=== PATIENT | male | born 1955 | race American Indian/Alaskan Native ===

== ENCOUNTER 2016-09-24 13:29 | Inpatient (IN) | payer OTHER ==
[~2016-09-24] VITALS: Ht 175.3 cm; Wt 91.2 kg
[~2016-09-24 13:29] MED LIST: ASPI-621 PO; ATEN50TA41 PO; BENA1TAB10 PO; DOCU250C2 PO; FAMO-79 PO; HYDR-3240 PO; LEVE500T53 PO; LEVE750T37 PO; LIDO700A5 EXT; MULT-82 PO
[2016-09-24] MEDS ORDERED: ONDANSETRON 2MG/ML, 2ML ONE (14:17)
[2016-09-24] MEDS ORDERED: MORPHINE SULFATE 4 MG/ML, 1ML ONE ×2 (14:17→15:19)
[2016-09-24] MEDS ORDERED: SODIUM CHLORIDE FLUSH 10ML SYR IVF ONE (14:30)
[2016-09-24] MEDS ORDERED: ONDANSETRON 2MG/ML, 2ML IVPush ONE (14:30)
[2016-09-24] MEDS: MORPHINE SULFATE 4 MG/ML, 1ML IVPush PRN ×2 (14:34→15:21)
[2016-09-24 14:41] LABS: HEMOGLOBIN 16.3 g/dL (13.7-18.0)
[2016-09-24 14:49] LABS: ASPARTATE AMINO TRANSFERASE 16 U/L (15-37); BLOOD UREA NITROGEN 12 mg/dL (7-18)
[2016-09-24 14:54] LABS: IS PT STATUS REG ER OR PRE ER? YES
[2016-09-24] MEDS ORDERED: KETOROLAC 30 MG/1 ML IVPush PRN (17:00)
[2016-09-24] MEDS ORDERED: SODIUM CHLORIDE 0.9% 1,000 ML IV SCH (17:02)
[2016-09-24] MEDS ORDERED: ONDANSETRON 2MG/ML, 2ML IVP PRN (17:30)
[2016-09-24] MEDS ORDERED: ACETAMINOPHEN 325 MG TABLET PO PRN (17:30)
[2016-09-24] MEDS ORDERED: MORPHINE SULFATE 4 MG/ML, 1ML IVPush PRN (17:30)
[2016-09-24] MEDS ORDERED: LORazepam 2 MG/ML, 1ML IVPush PRN (17:30)
[2016-09-24] MEDS ORDERED: ENALAPRILAT 1.25 MG/ML, 2ML IVPush PRN (17:30)
[2016-09-24] MEDS ORDERED: HYDROcodone/APAP 5/325 TABLET PO PRN (17:30)
[2016-09-24] MEDS ORDERED: POTASSIUM CHLORIDE 20 MEQ TAB.ER.PRT PO ONE (17:30)
[2016-09-24] MEDS ORDERED: TEMAZEPAM 15 MG CAPSULE PO PRN (17:30)
[2016-09-24] MEDS ORDERED: ENOXAPARIN 40 MG/0.4 ML SQ SCH (17:30)
[2016-09-24 17:51] VITALS: BP 195/107
[2016-09-24 18:23] VITALS: BP 159/103
[2016-09-24 18:34] VITALS: BP 151/96
[2016-09-24] MEDS ORDERED: ATENOLOL 50 MG TABLET PO ONE (19:00)
[2016-09-24] MEDS ORDERED: LEVETIRACETAM 500 MG TABLET PO SCH (21:00)
[2016-09-24] MEDS ORDERED: METHOCARBAMOL 1,000 MG in DEXTROSE 5% 100 ML IV SCH (21:00)
[2016-09-24] MEDS ORDERED: SIMVASTATIN 20 MG TABLET PO SCH (21:00)
[2016-09-24 21:36] VITALS: BP_SYST 146; BP_SYST 149; BP_SYST 151; BP_DIAS 88; BP_DIAS 91; BP_DIAS 95
[2016-09-25] MEDS ORDERED: PANTOPROZOLE 40MG TABLET PO SCH (07:30)
[2016-09-25] MEDS ORDERED: HYDROCHLOROTHIAZIDE PO SCH (09:00)
[2016-09-25] MEDS ORDERED: ATENOLOL 50 MG TABLET PO SCH (09:00)
[2016-09-25] MEDS ORDERED: ASPIRIN 81 MG TABLET EC PO SCH (09:00)
[2016-09-25] MEDS ORDERED: MULTIVITAMIN 1 TABLET PO SCH (09:00)
[2016-09-25] MEDS ORDERED: BENAZEPRIL PO SCH (09:00)
[2016-09-25] MEDS ORDERED: [UNRECOGNIZED DRUG - OTHER] PO SCH (09:00)
== END 2016-09-24 21:57 | disposition left against medical advice (07) | DRG 74 ==
LOC: ED 15:49 → EDIP 15:50 → ED 15:56 → SUATTDRO 16:21 → 5SO 17:14
PROVIDERS: ADMIT Internal Medicine; ATTEND Internal Medicine
DX: G90.8 Other disorders of autonomic nervous system (principal); I10 Essential (primary) hypertension; E87.6 Hypokalemia; G40.909 Epilepsy, unspecified, not intractable, without status epilepticus; E78.5 Hyperlipidemia, unspecified; I25.10 Atherosclerotic heart disease of native coronary artery without angina pectoris; S20.219A Contusion of unspecified front wall of thorax, initial encounter; K21.9 Gastro-esophageal reflux disease without esophagitis; Z96.641 Presence of right artificial hip joint; Z95.1 Presence of aortocoronary bypass graft; Z86.73 Personal history of transient ischemic attack (TIA), and cerebral infarction without residual deficits; Z87.891 Personal history of nicotine dependence; Z91.14 Patient's other noncompliance with medication regimen
CPT/HCPCS: 36415; 36556; 71010; 71120; 80053; 81003; 83880; 84484; 85025; 85610; 85730; 93005; 96374; 96375; 96376; J1650; J2405; J7030

== ENCOUNTER 2016-10-09 15:27 | Emergency (ER) | payer OTHER ==
[~2016-10-09] VITALS: Ht 175.3 cm; Wt 89.4 kg
[2016-10-09 15:31] VITALS: BP 172/103
[2016-10-09 16:27] LABS: BLOOD UREA NITROGEN 11 mg/dL (7-18)
== END 2016-10-09 16:28 | disposition left against medical advice (07) ==
LOC: ED 16:19
DX: R10.9 Unspecified abdominal pain (principal)
CPT/HCPCS: 36415; 80048; 82040; 85025; 99281

== ENCOUNTER 2016-10-30 07:45 | Emergency (ER) | payer OTHER ==
[~2016-10-30] VITALS: Ht 175.3 cm; Wt 90.4 kg
[2016-10-30] MEDS ORDERED: ONDANSETRON 2MG/ML, 2ML IVPush ONE (08:30)
[2016-10-30] MEDS ORDERED: SODIUM CHLORIDE 0.9% 1,000ML IVBOLUS ONE (08:30)
[2016-10-30] MEDS ORDERED: MAALOX/HYOSCYAMINE/LIDOCAINE 45 ML BOTTLE ONE (08:39)
[2016-10-30] MEDS ORDERED: ONDANSETRON 2MG/ML, 2ML ONE (08:39)
[2016-10-30 08:54] LABS: ASPARTATE AMINO TRANSFERASE 26 U/L (15-37); BLOOD UREA NITROGEN 8 mg/dL (7-18)
[2016-10-30] MEDS ORDERED: MAALOX/HYOSCYAMINE/LIDOCAINE 45 ML BOTTLE PO ONE (09:00)
[2016-10-30] MEDS ORDERED: MORPHINE SULFATE 4 MG/ML, 1ML ONE ×2 (09:14→10:29)
[2016-10-30] MEDS: MORPHINE SULFATE 4 MG/ML, 1ML IVPush PRN ×2 (09:28→10:36)
[2016-10-30 11:32] VITALS: BP 167/107
== END 2016-10-30 11:36 | disposition home or self-care (01) ==
LOC: ED 08:17
DX: R10.84 Generalized abdominal pain (principal); E78.5 Hyperlipidemia, unspecified; G40.909 Epilepsy, unspecified, not intractable, without status epilepticus; I25.10 Atherosclerotic heart disease of native coronary artery without angina pectoris; I10 Essential (primary) hypertension; Z95.1 Presence of aortocoronary bypass graft; Z87.891 Personal history of nicotine dependence
CPT/HCPCS: 36415; 80053; 81003; 83690; 85025; 96361; 96374; 96375; 96376; 99284; J2405; J7030

== ENCOUNTER 2016-12-22 06:21 | Emergency (ER) | payer OTHER ==
[~2016-12-22] VITALS: Ht 175.3 cm; Wt 93.8 kg
[2016-12-22] MEDS ORDERED: ONDANSETRON ODT 4 MG ONE (06:46)
[2016-12-22] MEDS ORDERED: HYDROmorphone 1 MG/ML, 1ML ONE ×2 (06:46→07:55)
[2016-12-22] MEDS ORDERED: HYDROmorphone 1 MG/ML, 1ML IM PRN (07:00)
[2016-12-22] MEDS ORDERED: ONDANSETRON ODT 4 MG PO ONE (07:00)
[2016-12-22 07:58] VITALS: BP 172/90
[2016-12-22] MEDS ORDERED: HYDROmorphone 1 MG/ML, 1ML IM ONE (08:00)
== END 2016-12-22 08:16 | disposition home or self-care (01) ==
LOC: ED 07:45
DX: R07.89 Other chest pain (principal); E78.5 Hyperlipidemia, unspecified; I25.10 Atherosclerotic heart disease of native coronary artery without angina pectoris; I11.9 Hypertensive heart disease without heart failure; Z87.891 Personal history of nicotine dependence; N19 Unspecified kidney failure
CPT/HCPCS: 71020; 71120; 93005; 96372; 99284; J1170; Q0162

== ENCOUNTER 2017-01-05 11:55 | Emergency (ER) | payer OTHER ==
[~2017-01-05] VITALS: Ht 175.3 cm; Wt 92.7 kg
[2017-01-05] MEDS ORDERED: SODIUM CHLORIDE 0.9% 1,000 ML IV ONE (12:25)
[2017-01-05] MEDS ORDERED: SODIUM CHLORIDE FLUSH 10ML SYR IVF ONE (12:30)
[2017-01-05] MEDS ORDERED: ONDANSETRON 2MG/ML, 2ML IVPush ONE (12:30)
[2017-01-05] MEDS ORDERED: SODIUM CHLORIDE 0.9% 1,000ML IVBOLUS ONE (12:30)
[2017-01-05] MEDS ORDERED: ONDANSETRON 2MG/ML, 2ML ONE (13:05)
[2017-01-05] MEDS ORDERED: HYDROmorphone 1 MG/ML, 1ML ONE ×2 (13:05→14:57)
[2017-01-05 13:25] LABS: ASPARTATE AMINO TRANSFERASE 16 U/L (15-37); BLOOD UREA NITROGEN 8 mg/dL (7-18)
[2017-01-05] MEDS: HYDROmorphone 1 MG/ML, 1ML IVPush PRN ×2 (13:53→14:59)
[2017-01-05] MEDS ORDERED: OMNIPAQUE 350 MG/ML, 100ML BOTTLE ONE (14:53)
[2017-01-05 15:02] VITALS: BP 118/95
== END 2017-01-05 15:49 | disposition home or self-care (01) ==
LOC: ED 13:42
DX: K52.9 Noninfective gastroenteritis and colitis, unspecified (principal); I10 Essential (primary) hypertension; E78.5 Hyperlipidemia, unspecified; E87.6 Hypokalemia; Z87.891 Personal history of nicotine dependence
CPT/HCPCS: 36415; 74177; 80053; 81003; 83690; 85025; 93005; 96361; 96374; 96375; 96376; 99285; J1170; J2405; J7030; Q9967

== ENCOUNTER 2017-01-26 05:59 | Emergency (ER) | payer OTHER ==
[~2017-01-26] VITALS: Ht 175.3 cm; Wt 95.4 kg
[2017-01-26] MEDS ORDERED: HYDROmorphone 1 MG/ML, 1ML ONE ×2 (06:24→07:42)
[2017-01-26] MEDS ORDERED: ONDANSETRON ODT 4 MG ONE (06:24)
[2017-01-26] MEDS ORDERED: HYDROmorphone 1 MG/ML, 1ML IM ONE ×2 (06:30→08:00)
[2017-01-26] MEDS ORDERED: ONDANSETRON ODT 4 MG PO ONE (06:30)
[2017-01-26 08:54] VITALS: BP 172/101
== END 2017-01-26 08:56 | disposition home or self-care (01) ==
LOC: ED 06:41
DX: Z76.0 Encounter for issue of repeat prescription (principal); S76.011A Strain of muscle, fascia and tendon of right hip, initial encounter; I10 Essential (primary) hypertension; Z87.891 Personal history of nicotine dependence; W19.XXXA Unspecified fall, initial encounter; Y93.89 Activity, other specified; Y92.009 Unspecified place in unspecified non-institutional (private) residence as the place of occurrence of the external cause; Y99.9 Unspecified external cause status
CPT/HCPCS: 73502; 96372; 99284; J1170; Q0162

== ENCOUNTER 2017-01-31 05:49 | Emergency (ER) | payer OTHER ==
[~2017-01-31] VITALS: Ht 175.3 cm; Wt 95.8 kg
[2017-01-31 07:33] VITALS: BP 165/99
== END 2017-01-31 07:37 | disposition home or self-care (01) ==
LOC: ED 07:08
DX: S73.121A Ischiocapsular ligament sprain of right hip, initial encounter (principal); I11.9 Hypertensive heart disease without heart failure; E78.5 Hyperlipidemia, unspecified; I25.10 Atherosclerotic heart disease of native coronary artery without angina pectoris; Z86.73 Personal history of transient ischemic attack (TIA), and cerebral infarction without residual deficits; Z88.5 Allergy status to narcotic agent; Z88.8 Allergy status to other drugs, medicaments and biological substances; Z87.891 Personal history of nicotine dependence; X58.XXXA Exposure to other specified factors, initial encounter; Y93.89 Activity, other specified; Y92.89 Other specified places as the place of occurrence of the external cause; Y99.9 Unspecified external cause status
CPT/HCPCS: 99283

== ENCOUNTER 2017-03-01 05:14 | Emergency (ER) | payer OTHER ==
[~2017-03-01] VITALS: Ht 175.3 cm; Wt 95.7 kg
[2017-03-01] MEDS ORDERED: SODIUM CHLORIDE 0.9% 1,000ML IVBOLUS ONE (05:30)
[2017-03-01] MEDS ORDERED: SODIUM CHLORIDE 0.9% 1,000 ML IV ONE (05:30)
[2017-03-01] MEDS ORDERED: ONDANSETRON 2MG/ML, 2ML IVPush ONE (05:30)
[2017-03-01] MEDS ORDERED: ONDANSETRON 2MG/ML, 2ML ONE (05:53)
[2017-03-01] MEDS ORDERED: MORPHINE SULFATE 4 MG/ML, 1ML ONE ×2 (05:53→06:36)
[2017-03-01 06:09] LABS: HEMATOCRIT 46.2 % (39.2-51.8); HEMOGLOBIN 15.6 g/dL (13.7-18.0); WHITE BLOOD COUNT 8.8 x10^3/uL (3.4-10)
[2017-03-01 06:21] LABS: ASPARTATE AMINO TRANSFERASE 25 U/L (15-37); BLOOD UREA NITROGEN 7 mg/dL (7-18)
[2017-03-01] MEDS: MORPHINE SULFATE 4 MG/ML, 1ML IVPush PRN ×2 (06:34→07:03)
[2017-03-01 08:18] VITALS: BP 176/101
== END 2017-03-01 08:21 | disposition home or self-care (01) ==
LOC: ED 05:51
DX: K85.90 Acute pancreatitis without necrosis or infection, unspecified (principal); R10.32 Left lower quadrant pain; E78.5 Hyperlipidemia, unspecified; I10 Essential (primary) hypertension; I25.10 Atherosclerotic heart disease of native coronary artery without angina pectoris; Z86.73 Personal history of transient ischemic attack (TIA), and cerebral infarction without residual deficits
CPT/HCPCS: 36415; 74022; 76700; 80053; 81003; 83690; 85025; 96361; 96374; 96375; 99285; J2405; J7030

== ENCOUNTER 2017-06-03 06:25 | Emergency (ER) | payer OTHER ==
[~2017-06-03] VITALS: Ht 175.3 cm; Wt 97.2 kg
[~2017-06-03 06:25] MED LIST changes: -DOCU250C2 PO; +DOCU250C9 PO; +MULT-224 PO; -MULT-82 PO
[2017-06-03] MEDS ORDERED: SODIUM CHLORIDE FLUSH 10ML SYR IVF ONE (07:00)
[2017-06-03] MEDS ORDERED: SODIUM CHLORIDE 0.9% 1,000ML IVBOLUS ONE (07:00)
[2017-06-03] MEDS ORDERED: MORPHINE SULFATE 4 MG/ML, 1ML IVPush PRN (07:00)
[2017-06-03 07:14] LABS: HEMATOCRIT 47.1 % (39.2-51.8); HEMOGLOBIN 16.2 g/dL (13.7-18.0)
[2017-06-03] MEDS ORDERED: ONDANSETRON 2MG/ML, 2ML ONE (07:16)
[2017-06-03] MEDS ORDERED: morphine SULFATE 10 MG/ML, 1ML ONE (07:16)
[2017-06-03 07:26] LABS: BLOOD UREA NITROGEN 6 mg/dL (7-18)
[2017-06-03 07:32] LABS: IS PT STATUS REG ER OR PRE ER? YES
[2017-06-03 08:13] VITALS: BP 179/109
== END 2017-06-03 08:16 | disposition home or self-care (01) ==
LOC: ED 08:10
DX: S20.212A Contusion of left front wall of thorax, initial encounter (principal); R55 Syncope and collapse; G40.909 Epilepsy, unspecified, not intractable, without status epilepticus; I10 Essential (primary) hypertension; E78.5 Hyperlipidemia, unspecified; W19.XXXA Unspecified fall, initial encounter; Y93.01 Activity, walking, marching and hiking; Y92.89 Other specified places as the place of occurrence of the external cause; Y99.8 Other external cause status; Z86.73 Personal history of transient ischemic attack (TIA), and cerebral infarction without residual deficits; Z95.1 Presence of aortocoronary bypass graft; Z87.891 Personal history of nicotine dependence
CPT/HCPCS: 36415; 71010; 80048; 82040; 84484; 85025; 93005; 96361; 96374; 99285; J7030

== ENCOUNTER 2017-07-05 05:28 | Emergency (ER) | payer OTHER ==
[~2017-07-05] VITALS: Ht 175.3 cm; Wt 95.6 kg
[2017-07-05] MEDS ORDERED: ONDANSETRON ODT 4 MG ONE (06:06)
[2017-07-05] MEDS ORDERED: HYDROmorphone 2 MG/ML, 1ML ONE (06:07)
[2017-07-05] MEDS ORDERED: ONDANSETRON ODT 4 MG PO ONE (06:30)
[2017-07-05] MEDS ORDERED: HYDROmorphone 1 MG/ML, 1ML IM ONE (06:30)
[2017-07-05 07:07] VITALS: BP 180/100
== END 2017-07-05 07:09 | disposition home or self-care (01) ==
LOC: ED 06:06
DX: S20.219A Contusion of unspecified front wall of thorax, initial encounter (principal); E87.6 Hypokalemia; E78.5 Hyperlipidemia, unspecified; I11.9 Hypertensive heart disease without heart failure; I25.810 Atherosclerosis of coronary artery bypass graft(s) without angina pectoris; Z86.73 Personal history of transient ischemic attack (TIA), and cerebral infarction without residual deficits; Z87.891 Personal history of nicotine dependence; W01.0XXA Fall on same level from slipping, tripping and stumbling without subsequent striking against object, initial encounter; Y93.89 Activity, other specified; Y92.009 Unspecified place in unspecified non-institutional (private) residence as the place of occurrence of the external cause; Y99.9 Unspecified external cause status
CPT/HCPCS: 71020; 93005; 96372; 99284; J1170; Q0162

== ENCOUNTER 2017-08-03 05:46 | Emergency (ER) | payer OTHER ==
[~2017-08-03] VITALS: Ht 175.3 cm; Wt 95.8 kg
[2017-08-03] MEDS ORDERED: FAMOTIDINE 20 MG/2 ML ONE (06:19)
[2017-08-03] MEDS ORDERED: ONDANSETRON 2MG/ML, 2ML ONE (06:19)
[2017-08-03] MEDS ORDERED: MORPHINE SULFATE 4 MG/ML, 1ML ONE ×2 (06:19→07:04)
[2017-08-03] MEDS: MORPHINE SULFATE 4 MG/ML, 1ML IVPush PRN ×2 (06:21→07:10)
[2017-08-03 06:24] LABS: BASOPHILS # (AUTO) 0.03 x10^3/uL (0-0.1); BASOPHILS % (AUTO) 0 % (0-1); EOSINOPHILS # (AUTO) 0.33 x10^3/uL (0-0.4); EOSINOPHILS % (AUTO) 5 % (1-7); LYMPHOCYTES # (AUTO) 1.31 x10^3/uL (1-3.4); LYMPHOCYTES % (AUTO) 20 % (22-44); MD NO; MEAN CORPUSCULAR HEMOGLOBIN 32.4 pg (27.5-34.5); MEAN CORPUSCULAR HGB CONC 34.4 g/dL (33.2-36.2); MEAN CORPUSCULAR VOLUME 94.4 fL (81-97); MEAN PLATELET VOLUME 8.1 fL (7.4-10.4); MONOCYTES # (AUTO) 0.62 x10^3/uL (0.2-0.8); MONOCYTES % (AUTO) 10 % (2-9); NEUTROPHILS # (AUTO) 4.14 x10^3/uL (1.8-6.8); NEUTROPHILS % (AUTO) 64 % (42-75); PLATELET COUNT 211 x10^3/uL (130-400); RED BLOOD COUNT 4.93 x10^6/uL (4.38-5.82); RED CELL DISTRIBUTION WIDTH 15.8 % (9.4-14.8)
[2017-08-03] MEDS ORDERED: ONDANSETRON 2MG/ML, 2ML IVPush ONE (06:30)
[2017-08-03] MEDS ORDERED: FAMOTIDINE 20 MG/2 ML IVPush ONE (06:30)
[2017-08-03] MEDS ORDERED: SODIUM CHLORIDE FLUSH 10ML SYR IVF ONE (06:30)
[2017-08-03 06:32] LABS: INTERNATIONAL NORMALIZED RATIO 1.03 (0.93-1.1); PROTHROMBIN TIME 10.7 Seconds (9.6-11.5)
[2017-08-03 06:36] LABS: ALANINE AMINOTRANSFERASE 16 U/L (12-78); ALBUMIN 3.4 g/dL (3.4-5.0); ANION GAP 6 mmol/L (5-15); CALCIUM 8.2 mg/dL (8.5-10.1); CHLORIDE 108 mmol/L (98-107); CREATININE 0.96 mg/dL (0.7-1.3)
[2017-08-03 06:39] LABS: ALKALINE PHOSPHATASE 98 U/L (45-117); BILIRUBIN,TOTAL 0.9 mg/dL (0.2-1.0); TOTAL PROTEIN 7.3 g/dL (6.4-8.2)
[2017-08-03 07:00] LABS: MICROSCOPIC NOT IND
[2017-08-03] MEDS ORDERED: POTASSIUM CHLORIDE 20 MEQ TAB.ER.PRT PO ONE (07:00)
[2017-08-03 07:05] LABS: CULTURE INDICATED? NO
[2017-08-03] MEDS ORDERED: POTASSIUM CHLORIDE 20 MEQ TAB.ER.PRT ONE (07:05)
[2017-08-03 08:35] VITALS: BP 167/93
== END 2017-08-03 08:36 | disposition home or self-care (01) ==
LOC: ED 08:04
DX: K57.31 Diverticulosis of large intestine without perforation or abscess with bleeding (principal); E87.6 Hypokalemia; E78.5 Hyperlipidemia, unspecified; I11.9 Hypertensive heart disease without heart failure; I25.810 Atherosclerosis of coronary artery bypass graft(s) without angina pectoris; Z86.73 Personal history of transient ischemic attack (TIA), and cerebral infarction without residual deficits
CPT/HCPCS: 36415; 80053; 81003; 83690; 85025; 85610; 96374; 96375; 96376; 99284; J2405; S0028

== ENCOUNTER 2017-08-10 17:24 | Inpatient (IN) | payer OTHER ==
[~2017-08-10] VITALS: Ht 175.3 cm; Wt 98.8 kg
[2017-08-10] MEDS ORDERED: ONDANSETRON 2MG/ML, 2ML IVPush ONE (18:00)
[2017-08-10] MEDS ORDERED: SODIUM CHLORIDE 0.9% 1,000ML IVBOLUS ONE (18:00)
[2017-08-10] MEDS ORDERED: SODIUM CHLORIDE FLUSH 10ML SYR IVF ONE (18:00)
[2017-08-10] MEDS ORDERED: FENTANYL PF 100 MCG/2ML ONE (18:35)
[2017-08-10] MEDS ORDERED: ONDANSETRON 2MG/ML, 2ML ONE (18:35)
[2017-08-10 18:43] LABS: PROTHROMBIN TIME 10.4 Seconds (9.6-11.5)
[2017-08-10 18:47] LABS: ALANINE AMINOTRANSFERASE 14 U/L (12-78); ALBUMIN 3.4 g/dL (3.4-5.0); ANION GAP 8 mmol/L (5-15); CALCIUM 8.3 mg/dL (8.5-10.1); CHLORIDE 110 mmol/L (98-107); CREATININE 0.85 mg/dL (0.7-1.3)
[2017-08-10] MEDS: FENTANYL PF 100 MCG/2ML IVPush PRN ×2 (18:48→19:12)
[2017-08-10 18:49] LABS: ALKALINE PHOSPHATASE 72 U/L (45-117); BASOPHILS # (AUTO) 0.03 x10^3/uL (0-0.1); BASOPHILS % (AUTO) 1 % (0-1); BILIRUBIN,TOTAL 0.8 mg/dL (0.2-1.0); EOSINOPHILS # (AUTO) 0.18 x10^3/uL (0-0.4); EOSINOPHILS % (AUTO) 4 % (1-7); LYMPHOCYTES # (AUTO) 1.11 x10^3/uL (1-3.4); LYMPHOCYTES % (AUTO) 22 % (22-44); MD NO; MEAN CORPUSCULAR HEMOGLOBIN 32.3 pg (27.5-34.5); MEAN CORPUSCULAR HGB CONC 33.9 g/dL (33.2-36.2); MEAN CORPUSCULAR VOLUME 95.4 fL (81-97); MEAN PLATELET VOLUME 8.8 fL (7.4-10.4); MONOCYTES % (AUTO) 12 % (2-9); NEUTROPHILS # (AUTO) 3.23 x10^3/uL (1.8-6.8); NEUTROPHILS % (AUTO) 63 % (42-75); PLATELET COUNT 225 x10^3/uL (130-400); RED BLOOD COUNT 4.79 x10^6/uL (4.38-5.82); RED CELL DISTRIBUTION WIDTH 15.4 % (9.4-14.8); TOTAL PROTEIN 7.3 g/dL (6.4-8.2)
[2017-08-10 19:08] LABS: MICROSCOPIC NOT IND
[2017-08-10] MEDS ORDERED: SODIUM CHLORIDE 0.9% 1,000 ML IV SCH (20:13)
[2017-08-10] MEDS ORDERED: METRONIDAZOLE PMX 500MG/100ML 100 ML ONE (20:24)
[2017-08-10] MEDS ORDERED: CIPROFLOXACIN/PMX 400MG/200ML 200 ML ONE (20:24)
[2017-08-10] MEDS ORDERED: ONDANSETRON 2MG/ML, 2ML IVPush PRN (20:30)
[2017-08-10] MEDS ORDERED: BISACODYL 10 MG SUPP PR PRN (20:30)
[2017-08-10] MEDS: METRONIDAZOLE PMX 500MG/100ML 100 ML IV SCH (20:34)
[2017-08-10] MEDS ORDERED: MORPHINE SULFATE 4 MG/ML, 1ML ONE (20:59)
[2017-08-10] MEDS: morphine SULFATE 10 MG/ML, 1ML IVPush PRN (21:05)
[2017-08-10 21:51] VITALS: BP 171/93
[2017-08-10] MEDS: LEVETIRACETAM 500 MG TABLET PO SCH (22:37)
[2017-08-10] MEDS: CIPROFLOXACIN/PMX 400MG/200ML 200 ML IV SCH (22:43)
[2017-08-11] MEDS: morphine SULFATE 10 MG/ML, 1ML IVPush PRN ×5 (00:09→12:05)
[2017-08-11 02:22] VITALS: BP_SYST 165; BP_SYST 168; BP_DIAS 85; BP_DIAS 90
[2017-08-11] MEDS: METRONIDAZOLE PMX 500MG/100ML 100 ML IV SCH (04:43)
[2017-08-11 05:48] LABS: CHLORIDE 106 mmol/L (98-107)
[2017-08-11 05:50] LABS: BASOPHILS # (AUTO) 0.06 x10^3/uL (0-0.1); BASOPHILS % (AUTO) 1 % (0-1); EOSINOPHILS # (AUTO) 0.32 x10^3/uL (0-0.4); EOSINOPHILS % (AUTO) 5 % (1-7); LYMPHOCYTES # (AUTO) 1.47 x10^3/uL (1-3.4); LYMPHOCYTES % (AUTO) 22 % (22-44); MD NO; MEAN CORPUSCULAR HEMOGLOBIN 32.7 pg (27.5-34.5); MEAN CORPUSCULAR HGB CONC 34.2 g/dL (33.2-36.2); MEAN CORPUSCULAR VOLUME 95.7 fL (81-97); MEAN PLATELET VOLUME 9.6 fL (7.4-10.4); MONOCYTES # (AUTO) 0.74 x10^3/uL (0.2-0.8); MONOCYTES % (AUTO) 11 % (2-9); NEUTROPHILS # (AUTO) 4.02 x10^3/uL (1.8-6.8); NEUTROPHILS % (AUTO) 61 % (42-75); PLATELET COUNT 205 x10^3/uL (130-400); RED BLOOD COUNT 4.54 x10^6/uL (4.38-5.82); RED CELL DISTRIBUTION WIDTH 15.4 % (9.4-14.8)
[2017-08-11 05:55] LABS: ALANINE AMINOTRANSFERASE 14 U/L (12-78); ALBUMIN 3.5 g/dL (3.4-5.0); ALKALINE PHOSPHATASE 70 U/L (45-117); ANION GAP 10 mmol/L (5-15); BILIRUBIN,TOTAL 1.2 mg/dL (0.2-1.0); TOTAL PROTEIN 6.9 g/dL (6.4-8.2)
[2017-08-11 06:54] VITALS: BP 176/103
[2017-08-11 08:20] VITALS: BP 148/92
[2017-08-11] MEDS ORDERED: MULTIVITAMIN 1 TABLET PO SCH (09:00)
[2017-08-11] MEDS ORDERED: BENAZEPRIL 20 MG TABLET PO SCH (09:00)
[2017-08-11] MEDS ORDERED: ATENOLOL 50 MG TABLET PO SCH (09:00)
[2017-08-11] MEDS ORDERED: HYDROCHLOROTHIAZIDE 12.5 MG CAPSULE PO SCH (09:00)
[2017-08-11] MEDS: LEVETIRACETAM 500 MG TABLET PO SCH (09:02)
[2017-08-11 09:30] VITALS: BP 140/90
[2017-08-11] MEDS ORDERED: FLU VACC QS2017-18 (36MOS+) UP/PF 0.5 ML IM-VACC ONE (10:00)
[2017-08-11] MEDS: CIPROFLOXACIN/PMX 400MG/200ML 200 ML IV SCH (11:11)
== END 2017-08-11 12:50 | disposition left against medical advice (07) | DRG 379 ==
LOC: ED 19:25 → EDIP 19:30 → ED 19:47 → 4NOR 21:05
PROVIDERS: ADMIT Hospitalist; ATTEND Hospitalist
DX: K57.33 Diverticulitis of large intestine without perforation or abscess with bleeding (principal); I11.9 Hypertensive heart disease without heart failure; E78.5 Hyperlipidemia, unspecified; I10 Essential (primary) hypertension; E87.6 Hypokalemia; G40.909 Epilepsy, unspecified, not intractable, without status epilepticus; I25.10 Atherosclerotic heart disease of native coronary artery without angina pectoris; K21.9 Gastro-esophageal reflux disease without esophagitis; Z82.49 Family history of ischemic heart disease and other diseases of the circulatory system; Z86.73 Personal history of transient ischemic attack (TIA), and cerebral infarction without residual deficits; Z91.19 Patient's noncompliance with other medical treatment and regimen; Z96.641 Presence of right artificial hip joint; Z95.1 Presence of aortocoronary bypass graft; Z87.891 Personal history of nicotine dependence; Z53.21 Procedure and treatment not carried out due to patient leaving prior to being seen by health care provider
CPT/HCPCS: 36415; 80053; 81003; 83690; 85025; 85610; 85730; 90686; 96374; 96375; J0744; J2405; J3010; J2270; J7030

== ENCOUNTER 2017-09-04 06:39 | Emergency (ER) | payer OTHER ==
[~2017-09-04] VITALS: Ht 175.3 cm; Wt 95.1 kg
[2017-09-04 06:40] VITALS: BP 186/99
[2017-09-04] MEDS ORDERED: KETOROLAC 30 MG/1 ML ONE (08:05)
[2017-09-04] MEDS ORDERED: OXYcodone/APAP 5/325MG TABLET ONE (08:05)
[2017-09-04] MEDS ORDERED: HYDROmorphone 2 MG/ML, 1ML ONE (08:10)
[2017-09-04] MEDS ORDERED: KETOROLAC 30 MG/1 ML IM ONE (08:30)
[2017-09-04] MEDS ORDERED: OXYcodone/APAP 5/325MG TABLET PO ONE (08:30)
[2017-09-04] MEDS ORDERED: HYDROmorphone 1 MG/ML, 1ML IM ONE (08:30)
== END 2017-09-04 09:31 | disposition home or self-care (01) ==
LOC: ED 09:15
DX: S20.219A Contusion of unspecified front wall of thorax, initial encounter (principal); I10 Essential (primary) hypertension; E78.5 Hyperlipidemia, unspecified; I25.10 Atherosclerotic heart disease of native coronary artery without angina pectoris; Z95.1 Presence of aortocoronary bypass graft; W01.0XXA Fall on same level from slipping, tripping and stumbling without subsequent striking against object, initial encounter; Y93.89 Activity, other specified; Y92.89 Other specified places as the place of occurrence of the external cause; Y99.8 Other external cause status
CPT/HCPCS: 71046; 71120; 93005; 96372; 99284; J1170

== ENCOUNTER 2017-12-04 07:02 | Emergency (ER) | payer OTHER ==
[~2017-12-04] VITALS: Ht 175.3 cm; Wt 93.5 kg
[2017-12-04] MEDS ORDERED: ATEN25TA PO (07:36)
[2017-12-04] MEDS ORDERED: BENA20TA2 PO (07:36)
[2017-12-04] MEDS ORDERED: KETOROLAC 30 MG/1 ML ONE (07:48)
[2017-12-04] MEDS ORDERED: KETOROLAC 30 MG/1 ML IM ONE (08:00)
[2017-12-04 08:19] LABS: BASOPHILS # (AUTO) 0.01 x10^3/uL (0-0.1); BASOPHILS % (AUTO) 0 % (0-1); EOSINOPHILS # (AUTO) 0.28 x10^3/uL (0-0.4); EOSINOPHILS % (AUTO) 4 % (1-7); LYMPHOCYTES # (AUTO) 1.19 x10^3/uL (1-3.4); LYMPHOCYTES % (AUTO) 15 % (22-44); MD NO; MEAN CORPUSCULAR HGB CONC 34.1 g/dL (33.2-36.2); MEAN CORPUSCULAR VOLUME 96.7 fL (81-97); MEAN PLATELET VOLUME 8.7 fL (7.4-10.4); MONOCYTES # (AUTO) 0.63 x10^3/uL (0.2-0.8); MONOCYTES % (AUTO) 8 % (2-9); NEUTROPHILS # (AUTO) 5.87 x10^3/uL (1.8-6.8); NEUTROPHILS % (AUTO) 74 % (42-75); PLATELET COUNT 204 x10^3/uL (130-400); RED BLOOD COUNT 5.23 x10^6/uL (4.38-5.82); RED CELL DISTRIBUTION WIDTH 16.5 % (9.4-14.8)
[2017-12-04 08:30] LABS: ALANINE AMINOTRANSFERASE 23 U/L (12-78); ALBUMIN 3.9 g/dL (3.4-5.0); ANION GAP 10 mmol/L (5-15); CALCIUM 8.7 mg/dL (8.5-10.1); CHLORIDE 109 mmol/L (98-107); CREATININE 0.97 mg/dL (0.7-1.3)
[2017-12-04 08:35] LABS: ALKALINE PHOSPHATASE 93 U/L (45-117); BILIRUBIN,TOTAL 0.8 mg/dL (0.2-1.0); TOTAL PROTEIN 7.9 g/dL (6.4-8.2); TROPONIN I < 0.015 ng/mL (0.000-0.045)
[2017-12-04] MEDS ORDERED: CYCLOBENZAPRINE 10 MG TABLET ONE (08:56)
[2017-12-04 09:00] VITALS: BP 148/85
[2017-12-04] MEDS ORDERED: CYCLOBENZAPRINE 10 MG TABLET PO ONE (09:00)
== END 2017-12-04 09:03 | disposition home or self-care (01) ==
LOC: ED 07:27
DX: R55 Syncope and collapse (principal); S20.219A Contusion of unspecified front wall of thorax, initial encounter; W19.XXXA Unspecified fall, initial encounter; Y93.89 Activity, other specified; Y92.89 Other specified places as the place of occurrence of the external cause; Y99.8 Other external cause status; I25.10 Atherosclerotic heart disease of native coronary artery without angina pectoris; Z79.82 Long term (current) use of aspirin; Z86.73 Personal history of transient ischemic attack (TIA), and cerebral infarction without residual deficits; Z87.891 Personal history of nicotine dependence; Z95.1 Presence of aortocoronary bypass graft
CPT/HCPCS: 36415; 71046; 80053; 84484; 85025; 93005; 96372; 99285; J1885

== ENCOUNTER 2017-12-31 12:54 | Emergency (ER) | payer OTHER ==
[~2017-12-31] VITALS: Ht 175.3 cm; Wt 95.0 kg
[~2017-12-31 12:54] MED LIST changes: +ATEN25TA PO; +BENA20TA2 PO
[2017-12-31] MEDS ORDERED: PROMETHAZINE 25 MG/ML, 1ML IM ONE (13:30)
[2017-12-31 13:36] LABS: BASOPHILS # (AUTO) 0.02 x10^3/uL (0-0.1); BASOPHILS % (AUTO) 0 % (0-1); EOSINOPHILS # (AUTO) 0.22 x10^3/uL (0-0.4); EOSINOPHILS % (AUTO) 3 % (1-7); LYMPHOCYTES # (AUTO) 1.23 x10^3/uL (1-3.4); LYMPHOCYTES % (AUTO) 19 % (22-44); MD NO; MEAN CORPUSCULAR HEMOGLOBIN 32.8 pg (27.5-34.5); MEAN CORPUSCULAR HGB CONC 33.9 g/dL (33.2-36.2); MEAN CORPUSCULAR VOLUME 96.8 fL (81-97); MEAN PLATELET VOLUME 8.2 fL (7.4-10.4); MONOCYTES # (AUTO) 0.65 x10^3/uL (0.2-0.8); MONOCYTES % (AUTO) 10 % (2-9); NEUTROPHILS # (AUTO) 4.44 x10^3/uL (1.8-6.8); NEUTROPHILS % (AUTO) 68 % (42-75); PLATELET COUNT 201 x10^3/uL (130-400); RED BLOOD COUNT 4.75 x10^6/uL (4.38-5.82)
[2017-12-31] MEDS ORDERED: PROMETHAZINE 25 MG/ML, 1ML ONE (13:36)
[2017-12-31 13:47] LABS: PROTHROMBIN TIME 10.3 Seconds (9.6-11.5)
[2017-12-31 13:51] LABS: ALANINE AMINOTRANSFERASE 29 U/L (12-78); ALBUMIN 3.4 g/dL (3.4-5.0); ANION GAP 7 mmol/L (5-15); CHLORIDE 111 mmol/L (98-107)
[2017-12-31 13:53] LABS: ALKALINE PHOSPHATASE 82 U/L (45-117); BILIRUBIN,TOTAL 0.6 mg/dL (0.2-1.0); TOTAL PROTEIN 7.1 g/dL (6.4-8.2)
[2017-12-31] MEDS ORDERED: KETOROLAC 30 MG/1 ML ONE (15:02)
[2017-12-31 15:05] VITALS: BP 152/97
== END 2017-12-31 15:33 | disposition home or self-care (01) ==
LOC: ED 14:34
DX: I10 Essential (primary) hypertension (principal); R51 Headache; I63.9 Cerebral infarction, unspecified; I25.10 Atherosclerotic heart disease of native coronary artery without angina pectoris; E78.5 Hyperlipidemia, unspecified; N19 Unspecified kidney failure
CPT/HCPCS: 36415; 70450; 80053; 85025; 85610; 85730; 93005; 96372; 99285; J2550

== ENCOUNTER 2018-01-28 06:48 | Emergency (ER) | payer OTHER ==
[~2018-01-28] VITALS: Ht 175.3 cm; Wt 95.6 kg
[2018-01-28 07:54] LABS: ANION GAP 9 mmol/L (5-15); CALCIUM 8.7 mg/dL (8.5-10.1); CHLORIDE 111 mmol/L (98-107)
[2018-01-28 07:55] LABS: ALBUMIN 3.3 g/dL (3.4-5.0)
[2018-01-28 08:05] LABS: BASOPHILS # (AUTO) 0.02 x10^3/uL (0-0.1); BASOPHILS % (AUTO) 0 % (0-1); EOSINOPHILS # (AUTO) 0.28 x10^3/uL (0-0.4); EOSINOPHILS % (AUTO) 5 % (1-7); LYMPHOCYTES # (AUTO) 1.08 x10^3/uL (1-3.4); LYMPHOCYTES % (AUTO) 18 % (22-44); MD NO; MEAN CORPUSCULAR HEMOGLOBIN 33.5 pg (27.5-34.5); MEAN CORPUSCULAR HGB CONC 34.8 g/dL (33.2-36.2); MEAN CORPUSCULAR VOLUME 96.2 fL (81-97); MONOCYTES # (AUTO) 0.55 x10^3/uL (0.2-0.8); MONOCYTES % (AUTO) 9 % (2-9); NEUTROPHILS # (AUTO) 4.17 x10^3/uL (1.8-6.8); NEUTROPHILS % (AUTO) 68 % (42-75); PLATELET COUNT 185 x10^3/uL (130-400); RED BLOOD COUNT 4.64 x10^6/uL (4.38-5.82); RED CELL DISTRIBUTION WIDTH 15.7 % (9.4-14.8)
[2018-01-28] MEDS ORDERED: ONDANSETRON ODT 4 MG ONE (09:27)
[2018-01-28] MEDS ORDERED: HYDROmorphone 2 MG/ML, 1ML ONE (09:28)
[2018-01-28] MEDS ORDERED: ONDANSETRON ODT 4 MG PO ONE (09:30)
[2018-01-28] MEDS ORDERED: HYDROmorphone 2 MG/ML, 1ML IM ONE (09:30)
[2018-01-28 09:32] VITALS: BP 168/84
== END 2018-01-28 10:23 | disposition home or self-care (01) ==
LOC: ED 07:02
DX: R51 Headache (principal); I11.9 Hypertensive heart disease without heart failure; E11.9 Type 2 diabetes mellitus without complications; E87.6 Hypokalemia; E78.5 Hyperlipidemia, unspecified; I25.810 Atherosclerosis of coronary artery bypass graft(s) without angina pectoris; Z86.73 Personal history of transient ischemic attack (TIA), and cerebral infarction without residual deficits; Z87.891 Personal history of nicotine dependence
CPT/HCPCS: 36415; 70450; 80048; 82040; 85025; 93005; 96372; 99285; J1170; Q0162

== ENCOUNTER 2018-02-27 06:54 | Observation (INO) | payer OTHER ==
[~2018-02-27] VITALS: Ht 175.3 cm; Wt 95.9 kg
[~2018-02-27 06:54] MED LIST changes: -BENA20TA2 PO; +BENA20TA4 PO
[2018-02-27] MEDS ORDERED: ONDANSETRON 2MG/ML, 2ML ONE (07:09)
[2018-02-27] MEDS ORDERED: MORPHINE SULFATE 4 MG/ML, 1ML ONE (07:10)
[2018-02-27] MEDS ORDERED: SODIUM CHLORIDE 0.9% 1,000 ML IV ONE (07:10)
[2018-02-27] MEDS ORDERED: MORPHINE SULFATE 4 MG/ML, 1ML IVPush PRN (07:30)
[2018-02-27] MEDS ORDERED: ONDANSETRON 2MG/ML, 2ML IVPush ONE (07:30)
[2018-02-27] MEDS ORDERED: SODIUM CHLORIDE FLUSH 10ML SYR IVF ONE (07:30)
[2018-02-27 08:08] LABS: MICROSCOPIC NOT IND
[2018-02-27 08:17] LABS: CULTURE INDICATED? NO
[2018-02-27 08:20] LABS: BASOPHILS # (AUTO) 0.04 x10^3/uL (0-0.1); BASOPHILS % (AUTO) 1 % (0-1); EOSINOPHILS # (AUTO) 0.39 x10^3/uL (0-0.4); EOSINOPHILS % (AUTO) 6 % (1-7); LYMPHOCYTES # (AUTO) 1.36 x10^3/uL (1-3.4); LYMPHOCYTES % (AUTO) 21 % (22-44); MD NO; MEAN CORPUSCULAR HEMOGLOBIN 32.5 pg (27.5-34.5); MEAN CORPUSCULAR HGB CONC 34.4 g/dL (33.2-36.2); MEAN CORPUSCULAR VOLUME 94.5 fL (81-97); MEAN PLATELET VOLUME 9.6 fL (7.4-10.4); MONOCYTES # (AUTO) 0.51 x10^3/uL (0.2-0.8); MONOCYTES % (AUTO) 8 % (2-9); NEUTROPHILS # (AUTO) 4.08 x10^3/uL (1.8-6.8); NEUTROPHILS % (AUTO) 64 % (42-75); PLATELET COUNT 189 x10^3/uL (130-400); RED BLOOD COUNT 4.73 x10^6/uL (4.38-5.82); RED CELL DISTRIBUTION WIDTH 15.3 % (9.4-14.8)
[2018-02-27 08:27] LABS: ALANINE AMINOTRANSFERASE 22 U/L (12-78); ALBUMIN 3.3 g/dL (3.4-5.0); ANION GAP 9 mmol/L (5-15); CALCIUM 8.4 mg/dL (8.5-10.1); CHLORIDE 110 mmol/L (98-107); CREATININE 0.94 mg/dL (0.7-1.3)
[2018-02-27 08:30] LABS: ALKALINE PHOSPHATASE 86 U/L (45-117); BILIRUBIN,TOTAL 0.9 mg/dL (0.2-1.0); TOTAL PROTEIN 6.7 g/dL (6.4-8.2)
[2018-02-27 08:40] LABS: INTERNATIONAL NORMALIZED RATIO 1.05 (0.93-1.1); PROTHROMBIN TIME 10.8 Seconds (9.6-11.5)
[2018-02-27] MEDS ORDERED: OMNIPAQUE 350 MG/ML, 100ML BOTTLE ONE (08:54)
[2018-02-27] MEDS ORDERED: HYDROmorphone 2 MG/ML, 1ML IVPush PRN (09:30)
[2018-02-27] MEDS ORDERED: HYDROmorphone 2 MG/ML, 1ML ONE (09:44)
[2018-02-27] MEDS ORDERED: NS + 20MEQ KCL 1,000 ML IV SCH (09:50)
[2018-02-27] MEDS ORDERED: PANTOPRAZOLE 40 MG IV IVPush SCH (10:00)
[2018-02-27] MEDS ORDERED: ONDANSETRON 2MG/ML, 2ML IVPush PRN (10:00)
[2018-02-27] MEDS ORDERED: ONDANSETRON ODT 4 MG PO PRN (10:00)
[2018-02-27] MEDS ORDERED: POTASSIUM CHLORIDE 20 MEQ TAB.ER.PRT PO ONE (10:30)
[2018-02-27 10:50] VITALS: BP 165/97
[2018-02-27 10:54] LABS: THYROID STIMULATING HORMONE 1.72 mIU/L (0.358-3.740)
[2018-02-27] MEDS: morphine SULFATE 10 MG/ML, 1ML IVPush PRN ×2 (11:14→14:38)
[2018-02-27] MEDS ORDERED: MAGNESIUM SULFATE PMX 2GM/50ML 50 ML IV ONE (11:30)
[2018-02-27 14:00] VITALS: BP 166/98
[2018-02-27] MEDS ORDERED: LEVETIRACETAM 500 MG TABLET PO SCH (21:00)
[2018-02-28] MEDS ORDERED: BENAZEPRIL HCL 20 MG PO SCH (09:00)
[2018-02-28] MEDS ORDERED: MULTIVITAMINS/MINERALS TABLET PO SCH (09:00)
[2018-02-28] MEDS ORDERED: ATENOLOL 25 MG TABLET PO SCH (09:00)
== END 2018-02-27 15:43 | disposition home or self-care (01) ==
LOC: ED 09:01 → INTOOBSV 10:57 → EDIP 10:57 → 3NE 10:59 → UNDODISIN 15:43
PROVIDERS: ADMIT Family Medicine; ATTEND Family Medicine
DX: R10.9 Unspecified abdominal pain (principal); R11.2 Nausea with vomiting, unspecified; E87.6 Hypokalemia; G89.29 Other chronic pain; G40.909 Epilepsy, unspecified, not intractable, without status epilepticus; I11.9 Hypertensive heart disease without heart failure; E78.5 Hyperlipidemia, unspecified; I25.10 Atherosclerotic heart disease of native coronary artery without angina pectoris; K21.9 Gastro-esophageal reflux disease without esophagitis; N40.0 Benign prostatic hyperplasia without lower urinary tract symptoms; E11.9 Type 2 diabetes mellitus without complications; Z95.1 Presence of aortocoronary bypass graft; Z87.891 Personal history of nicotine dependence; Z86.73 Personal history of transient ischemic attack (TIA), and cerebral infarction without residual deficits; Z79.82 Long term (current) use of aspirin; Z88.6 Allergy status to analgesic agent
CPT/HCPCS: 36415; 74177; 80053; 81003; 83605; 83690; 83735; 84443; 85025; 85610; 96361; 96374; 96375; 96376; 99285; C9113; G0378; J1170; J2270; J2405; J3480; J7030; Q9967

== ENCOUNTER 2018-03-07 15:25 | Emergency (ER) | payer OTHER ==
[~2018-03-07] VITALS: Ht 175.3 cm; Wt 93.9 kg
[2018-03-07 15:48] VITALS: BP 161/86
[2018-03-07] MEDS ORDERED: ASPI-650 PO (16:02)
[2018-03-07 16:27] LABS: BASOPHILS # (AUTO) 0.04 x10^3/uL (0-0.1); BASOPHILS % (AUTO) 1 % (0-1); EOSINOPHILS # (AUTO) 0.19 x10^3/uL (0-0.4); EOSINOPHILS % (AUTO) 3 % (1-7); LYMPHOCYTES # (AUTO) 1.17 x10^3/uL (1-3.4); LYMPHOCYTES % (AUTO) 20 % (22-44); MD NO; MEAN CORPUSCULAR HEMOGLOBIN 32.4 pg (27.5-34.5); MEAN CORPUSCULAR VOLUME 95.4 fL (81-97); MEAN PLATELET VOLUME 8.9 fL (7.4-10.4); MONOCYTES # (AUTO) 0.41 x10^3/uL (0.2-0.8); MONOCYTES % (AUTO) 7 % (2-9); NEUTROPHILS # (AUTO) 4.09 x10^3/uL (1.8-6.8); NEUTROPHILS % (AUTO) 69 % (42-75); PLATELET COUNT 204 x10^3/uL (130-400); RED BLOOD COUNT 4.91 x10^6/uL (4.38-5.82); RED CELL DISTRIBUTION WIDTH 15.1 % (9.4-14.8)
[2018-03-07 16:37] LABS: ALANINE AMINOTRANSFERASE 17 U/L (12-78); ALBUMIN 3.5 g/dL (3.4-5.0); ANION GAP 6 mmol/L (5-15); CHLORIDE 111 mmol/L (98-107); CREATININE 0.97 mg/dL (0.7-1.3)
[2018-03-07 16:39] LABS: ALKALINE PHOSPHATASE 76 U/L (45-117); BILIRUBIN,TOTAL 0.5 mg/dL (0.2-1.0); TOTAL PROTEIN 7.3 g/dL (6.4-8.2)
== END 2018-03-07 17:24 | disposition home or self-care (01) ==
LOC: ED 17:18
DX: R10.84 Generalized abdominal pain (principal); I10 Essential (primary) hypertension; E11.9 Type 2 diabetes mellitus without complications; G40.909 Epilepsy, unspecified, not intractable, without status epilepticus; Z86.73 Personal history of transient ischemic attack (TIA), and cerebral infarction without residual deficits; Z87.891 Personal history of nicotine dependence; Z96.649 Presence of unspecified artificial hip joint; Z95.1 Presence of aortocoronary bypass graft
CPT/HCPCS: 36415; 80053; 83605; 83690; 85025; 99284

== ENCOUNTER 2018-06-02 05:40 | Inpatient (IN) | payer OTHER ==
[~2018-06-02] VITALS: Ht 175.3 cm; Wt 97.9 kg
[~2018-06-02 05:40] MED LIST changes: -ASPI-621 PO; +ASPI-650 PO; +ASPI81TA45 PO
[2018-06-02] MEDS ORDERED: MORPHINE SULFATE 4 MG/ML, 1ML ONE ×2 (06:24→07:16)
[2018-06-02 06:28] LABS: BASOPHILS # (AUTO) 0.02 x10^3/uL (0-0.1); BASOPHILS % (AUTO) 0 % (0-1); EOSINOPHILS # (AUTO) 0.39 x10^3/uL (0-0.4); EOSINOPHILS % (AUTO) 6 % (1-7); LYMPHOCYTES # (AUTO) 1.45 x10^3/uL (1-3.4); LYMPHOCYTES % (AUTO) 23 % (22-44); MD NO; MEAN CORPUSCULAR HEMOGLOBIN 32.3 pg (27.5-34.5); MEAN CORPUSCULAR HGB CONC 34.6 g/dL (33.2-36.2); MEAN CORPUSCULAR VOLUME 93.4 fL (81-97); MEAN PLATELET VOLUME 8.5 fL (7.4-10.4); MONOCYTES # (AUTO) 0.47 x10^3/uL (0.2-0.8); MONOCYTES % (AUTO) 7 % (2-9); NEUTROPHILS # (AUTO) 4.07 x10^3/uL (1.8-6.8); NEUTROPHILS % (AUTO) 64 % (42-75); PLATELET COUNT 244 x10^3/uL (130-400); RED BLOOD COUNT 5.01 x10^6/uL (4.38-5.82); RED CELL DISTRIBUTION WIDTH 14.9 % (9.4-14.8)
[2018-06-02] MEDS: MORPHINE SULFATE 4 MG/ML, 1ML IVPush PRN ×2 (06:29→07:20)
[2018-06-02] MEDS ORDERED: SODIUM CHLORIDE FLUSH 10ML SYR IVF ONE (06:30)
[2018-06-02 06:58] LABS: CULTURE INDICATED? NO; MICROSCOPIC NOT IND
[2018-06-02 07:02] LABS: ALANINE AMINOTRANSFERASE 22 U/L (12-78); ALBUMIN 3.3 g/dL (3.4-5.0); ALKALINE PHOSPHATASE 86 U/L (45-117); ANION GAP 8 mmol/L (5-15); BILIRUBIN,TOTAL 0.7 mg/dL (0.2-1.0); CALCIUM 7.8 mg/dL (8.5-10.1); CHLORIDE 109 mmol/L (98-107); CREATININE 0.96 mg/dL (0.7-1.3); TOTAL PROTEIN 6.8 g/dL (6.4-8.2); TROPONIN I < 0.015 ng/mL (0.000-0.045)
[2018-06-02] MEDS ORDERED: LABETALOL 20 MG/4 ML ONE (07:27)
[2018-06-02] MEDS ORDERED: LABETALOL 5MG/ML, 20ML IVPush ONE (07:30)
[2018-06-02] MEDS ORDERED: SODIUM CHLORIDE FLUSH 10ML SYR IVF PRN (08:00)
[2018-06-02 08:26] VITALS: BP 169/108
[2018-06-02] MEDS ORDERED: BISACODYL 10 MG SUPP PR PRN (08:30)
[2018-06-02] MEDS ORDERED: ENALAPRILAT 1.25 MG/ML, 2ML IVPush PRN (08:30)
[2018-06-02] MEDS ORDERED: ONDANSETRON 2MG/ML, 2ML IVPush PRN (08:30)
[2018-06-02] MEDS ORDERED: ONDANSETRON ODT 4 MG PO PRN (08:30)
[2018-06-02] MEDS ORDERED: DOCUSATE 100 MG CAPSULE PO PRN (08:30)
[2018-06-02] MEDS ORDERED: morphine SULFATE 10 MG/ML, 1ML IVPush PRN (08:30)
[2018-06-02] MEDS ORDERED: LABETALOL 5MG/ML, 20ML IVPush PRN (08:30)
[2018-06-02] MEDS ORDERED: BUTALB/APAP/CAFFEINE 50MG/325MG/40MG PO PRN (08:30)
[2018-06-02] MEDS ORDERED: hydrALAzine 20 MG/ML, 1ML IVPush PRN (08:30)
[2018-06-02] MEDS ORDERED: BENAZEPRIL 20 MG TABLET PO SCH (09:00)
[2018-06-02] MEDS ORDERED: SENNA/DOCUSATE TABLET PO SCH (09:00)
[2018-06-02] MEDS ORDERED: MULTIVITAMIN 1 TABLET PO SCH (09:00)
[2018-06-02] MEDS ORDERED: ATENOLOL 25 MG TABLET PO SCH (09:00)
[2018-06-02] MEDS ORDERED: LEVETIRACETAM 500 MG TABLET PO SCH (09:00)
[2018-06-02] MEDS ORDERED: GADOBUTROL 10 MMOL/10 ML PFS ONE (09:45)
[2018-06-02 13:23] VITALS: BP 125/76
[2018-06-02 14:00] VITALS: BP 133/73
[2018-06-02 17:15] VITALS: BP 142/51
[2018-06-02] MEDS ORDERED: ATORVASTATIN 80 MG TABLET PO SCH (21:00)
== END 2018-06-02 17:47 | disposition left against medical advice (07) | DRG 65 ==
LOC: ED 07:04 → 4EST 08:08
PROVIDERS: ADMIT Hospitalist; ATTEND Hospitalist
DX: I63.511 Cerebral infarction due to unspecified occlusion or stenosis of right middle cerebral artery (principal); E44.0 Moderate protein-calorie malnutrition; G40.909 Epilepsy, unspecified, not intractable, without status epilepticus; I10 Essential (primary) hypertension; I25.10 Atherosclerotic heart disease of native coronary artery without angina pectoris; Z96.641 Presence of right artificial hip joint; R29.810 Facial weakness; E78.5 Hyperlipidemia, unspecified; E11.9 Type 2 diabetes mellitus without complications; E87.6 Hypokalemia; Z60.2 Problems related to living alone; K21.9 Gastro-esophageal reflux disease without esophagitis; Z82.49 Family history of ischemic heart disease and other diseases of the circulatory system; Z86.73 Personal history of transient ischemic attack (TIA), and cerebral infarction without residual deficits; Z91.19 Patient's noncompliance with other medical treatment and regimen; Z95.1 Presence of aortocoronary bypass graft; Z87.891 Personal history of nicotine dependence; Z88.8 Allergy status to other drugs, medicaments and biological substances; Z88.6 Allergy status to analgesic agent; Z88.5 Allergy status to narcotic agent
CPT/HCPCS: 36415; 70450; 70553; 71045; 80053; 80177; 81003; 84484; 85025; 93005; 93880; 96374; 96375; 96376; 99285; A9585; G0378; J2270

== ENCOUNTER 2018-08-10 07:13 | Emergency (ER) | payer MEDICARE, OTHER ==
[~2018-08-10] VITALS: Ht 175.3 cm; Wt 100.4 kg
[~2018-08-10 07:13] MED LIST changes: -BENA20TA4 PO; +BENA20TA54 PO; -MULT-224 PO; +MULT-642 PO
--- NOTE | 2018-08-10 07:39 | NUR ---
PT PRESENTED TO ED WITH LEFT SIDED WEAKNESS WITH LEFT HAND AND LEFT LEG SINCE 17:00 YESTERDAY. PT STATED HE HAD A CVA 2 YEARS AGO. PT ALSO STATED HE HAS A HEADACHE. PT A&OX4. EKG DONE AND PRESENTED TO MD. PT PLACED ON BP, CARDIAC AND CONT. PULSE OXIMETER. ASSESSMENT COMPLETED. CALL LIGHT IN REACH. 2 SIDE RAILS UP.
--- NOTE | 2018-08-10 07:49 | NUR ---
REPORT GIVEN TO LEIGHANN BELLO
[2018-08-10] MEDS ORDERED: PROMETHAZINE 25MG TABLET PO PRN (08:00)
[2018-08-10] MEDS ORDERED: BENAZEPRIL 20 MG TABLET PO ONE (08:00)
[2018-08-10] MEDS ORDERED: ATENOLOL 25 MG TABLET PO SCH (08:00)
[2018-08-10] MEDS ORDERED: PROMETHAZINE 25MG TABLET ONE (08:05)
--- NOTE | 2018-08-10 08:09 | NUR ---
MEDICATIONS REQUESTED FROM PHARMACY.
[2018-08-10 08:41] LABS: BASOPHILS # (AUTO) 0.04 x10^3/uL (0-0.1); BASOPHILS % (AUTO) 1 % (0-1); EOSINOPHILS # (AUTO) 0.27 x10^3/uL (0-0.4); EOSINOPHILS % (AUTO) 4 % (1-7); LYMPHOCYTES # (AUTO) 1.16 x10^3/uL (1-3.4); LYMPHOCYTES % (AUTO) 19 % (22-44); MD NO; MEAN CORPUSCULAR HEMOGLOBIN 31.9 pg (27.5-34.5); MEAN CORPUSCULAR HGB CONC 34.3 g/dL (33.2-36.2); MEAN CORPUSCULAR VOLUME 93.1 fL (81-97); MEAN PLATELET VOLUME 8.6 fL (7.4-10.4); MONOCYTES # (AUTO) 0.51 x10^3/uL (0.2-0.8); MONOCYTES % (AUTO) 8 % (2-9); NEUTROPHILS # (AUTO) 4.09 x10^3/uL (1.8-6.8); NEUTROPHILS % (AUTO) 68 % (42-75); PLATELET COUNT 241 x10^3/uL (130-400); RED BLOOD COUNT 5.13 x10^6/uL (4.38-5.82); RED CELL DISTRIBUTION WIDTH 14.6 % (9.4-14.8)
--- NOTE | 2018-08-10 08:49 | NUR ---
PT MEDICATED PER ORDER. PT IS ALERT, ORIENTED, WITH NAD. PT IS CONNECTED TO THE MONITOR. CALL LIGHT WITHIN REACH.
[2018-08-10 08:51] LABS: ANION GAP 5 mmol/L (5-15); CALCIUM 8.8 mg/dL (8.5-10.1); CHLORIDE 109 mmol/L (98-107); CREATININE 0.86 mg/dL (0.7-1.3)
[2018-08-10 09:15] VITALS: BP 179/103
--- NOTE | 2018-08-10 09:16 | NUR ---
PT IS RESTING IN BED, TALKING WITH THE MD, RESPIRATIONS EQUAL AND NON LABORED. NAD. PT IS CONNECTED TO THE MONITOR. CALL LIGHT WITHIN REACH.
--- NOTE | 2018-08-10 09:56 | NUR ---
Patient given discharge instructions and they have confirmed that they understand the instructions. Patient ambulatory with steady gait.
== END 2018-08-10 10:01 | disposition home or self-care (01) ==
LOC: ED 07:52
DX: R53.1 Weakness (principal); R51 Headache; I11.9 Hypertensive heart disease without heart failure; Z72.9 Problem related to lifestyle, unspecified; E11.9 Type 2 diabetes mellitus without complications; G40.909 Epilepsy, unspecified, not intractable, without status epilepticus; I25.10 Atherosclerotic heart disease of native coronary artery without angina pectoris; Z95.1 Presence of aortocoronary bypass graft; Z96.641 Presence of right artificial hip joint; Z86.73 Personal history of transient ischemic attack (TIA), and cerebral infarction without residual deficits
CPT/HCPCS: 36415; 80048; 83735; 85025; 93005; 99284; Q0169

== ENCOUNTER 2018-10-02 04:41 | Inpatient (IN) | payer MEDICARE ==
[~2018-10-02] VITALS: Ht 175.3 cm; Wt 102.2 kg
[2018-10-02] MEDS ORDERED: ONDANSETRON 2MG/ML, 2ML IVPush ONE (05:00)
[2018-10-02] MEDS ORDERED: SODIUM CHLORIDE FLUSH 10ML SYR IVF ONE (05:00)
[2018-10-02 05:37] LABS: BASOPHILS # (AUTO) 0.02 x10^3/uL (0-0.1); BASOPHILS % (AUTO) 0 % (0-1); EOSINOPHILS # (AUTO) 0.11 x10^3/uL (0-0.4); EOSINOPHILS % (AUTO) 1 % (1-7); LYMPHOCYTES # (AUTO) 1.03 x10^3/uL (1-3.4); LYMPHOCYTES % (AUTO) 11 % (22-44); MD NO; MEAN CORPUSCULAR HEMOGLOBIN 32.7 pg (27.5-34.5); MEAN CORPUSCULAR VOLUME 93.5 fL (81-97); MEAN PLATELET VOLUME 8.2 fL (7.4-10.4); MONOCYTES # (AUTO) 0.81 x10^3/uL (0.2-0.8); MONOCYTES % (AUTO) 9 % (2-9); NEUTROPHILS # (AUTO) 7.07 x10^3/uL (1.8-6.8); NEUTROPHILS % (AUTO) 78 % (42-75); PLATELET COUNT 216 x10^3/uL (130-400); RED BLOOD COUNT 5.27 x10^6/uL (4.38-5.82); RED CELL DISTRIBUTION WIDTH 15.1 % (9.4-14.8)
[2018-10-02 05:41] LABS: ALANINE AMINOTRANSFERASE 23 U/L (12-78); ALBUMIN 3.9 g/dL (3.4-5.0); ANION GAP 9 mmol/L (5-15); CALCIUM 8.3 mg/dL (8.5-10.1); CHLORIDE 108 mmol/L (98-107); CREATININE 0.96 mg/dL (0.7-1.3)
[2018-10-02 05:44] LABS: ALKALINE PHOSPHATASE 96 U/L (45-117); BILIRUBIN,TOTAL 1.9 mg/dL (0.2-1.0); TOTAL PROTEIN 7.5 g/dL (6.4-8.2)
[2018-10-02] MEDS ORDERED: ONDANSETRON 2MG/ML, 2ML ONE (05:46)
[2018-10-02] MEDS ORDERED: MORPHINE SULFATE 4 MG/ML, 1ML ONE ×5 (05:46→17:18)
--- NOTE | 2018-10-02 06:15 | NUR ---
2 IV ATTEMPTS FAILED. ANOTHER RN IN TRYING IV. LABS HAVE BEEN DRAWN. PT REPOSITIONED.
[2018-10-02] MEDS: MORPHINE SULFATE 4 MG/ML, 1ML IVPush PRN ×2 (06:18→07:15)
--- NOTE | 2018-10-02 06:44 | NUR ---
PT GOING TO CT
[2018-10-02] MEDS ORDERED: OMNIPAQUE 350 MG/ML, 100ML BOTTLE ONE (06:52)
--- NOTE | 2018-10-02 07:00 | NUR ---
REC REPORT PT RESTING UP AMBULATORY NADN
--- NOTE | 2018-10-02 07:03 | NUR ---
REPORT TO STEPHON BELLO. PT BACK FROM CT WITH URINE SAMPLE.
[2018-10-02] MEDS ORDERED: SODIUM CHLORIDE 0.9% 1,000ML IVBOLUS ONE (07:30)
[2018-10-02] MEDS ORDERED: POTASSIUM CHLORIDE 40 MEQ in SODIUM CHLORIDE 0.45% 1,000 ML IV SCH (07:30)
[2018-10-02 07:52] LABS: MICROSCOPIC NOT IND
[2018-10-02 07:57] LABS: CULTURE INDICATED? NO
[2018-10-02] MEDS ORDERED: ONDANSETRON ODT 4 MG PO PRN (08:00)
[2018-10-02] MEDS ORDERED: ONDANSETRON 2MG/ML, 2ML IVPush PRN (08:00)
[2018-10-02] MEDS ORDERED: BISACODYL 10 MG SUPP PR PRN (08:00)
[2018-10-02] MEDS ORDERED: POLYETHYLENE GLYCOL 17 GM PACKET PO PRN (08:00)
[2018-10-02] MEDS ORDERED: DOCUSATE 100 MG CAPSULE PO PRN (08:00)
[2018-10-02] MEDS ORDERED: LIDODERM 5% PATCH TD PRN (08:00)
[2018-10-02] MEDS ORDERED: LABETALOL 5MG/ML, 20ML IVPush PRN (08:00)
[2018-10-02] MEDS ORDERED: ENOXAPARIN 40 MG/0.4 ML ONE (08:22)
[2018-10-02 08:30] VITALS: BP 186/104
[2018-10-02 08:40] LABS: CHOL/HDL RATIO 5.1; LDL/HDL RATIO 3.2 (0.5-3.0)
[2018-10-02] MEDS: LACTATED RINGERS 1,000 ML IV SCH ×3 (09:44→22:57)
[2018-10-02] MEDS: LEVETIRACETAM 1,000 MG in SODIUM CHLORIDE 0.9% 100 ML IV SCH ×2 (09:44→22:57)
[2018-10-02] MEDS: ENOXAPARIN 40 MG/0.4 ML SQ SCH (09:53)
--- NOTE | 2018-10-02 09:57 | NUR ---
PT CONTINULY ASKING FOR FOOD AND PAIN MEDS CONTINUE TO REMIAND PT REASONS FOR NPO AND TIME TO NEXT PAIN MED ADMINISTRATION
[2018-10-02] MEDS: FAMOTIDINE 20 MG/2 ML IVPush SCH ×2 (10:36→21:28)
[2018-10-02] MEDS: morphine SULFATE 10 MG/ML, 1ML IVPush PRN ×4 (10:40→21:27)
[2018-10-02] MEDS ORDERED: hydrALAzine 20 MG/ML, 1ML ONE (10:42)
[2018-10-02] MEDS: hydrALAzine 20 MG/ML, 1ML IVPush PRN ×2 (10:49→21:43)
--- NOTE | 2018-10-02 10:56 | NUR ---
Leighton ortega in ED - 10/02/18 at 1233 by RAFI CALL FROM [facility] SENDING RECOMENDATION TO [facility] FOR DC AND MED CHANGE
[2018-10-02 11:56] LABS: AMPHETAMINE SCREEN, URINE Negative (Negative); BARBITURATE SCREEN, URINE Negative (Negative); BENZODIAZEPINE SCREEN, URINE Negative (Negative); CANNABINOID SCREEN, URINE Negative (Negative); COCAINE SCREEN, URINE Negative (Negative); METHADONE SCREEN, URINE Negative (Negative); OPIATE SCREEN, URINE Positive (Negative)
--- NOTE | 2018-10-02 12:33 | NUR ---
PT RESTING AT THIS TIME WATCH TV [facility]CE[facility]
--- NOTE | 2018-10-02 13:07 | NUR ---
RECEIVED REPORT FROM STEPHON BELLO, ASSUMING CARE AT THIS TIME.
[2018-10-02] MEDS ORDERED: LABETALOL 5 MG/ML SYRINGE IVPush PRN (14:00)
--- NOTE | 2018-10-02 14:04 | NUR ---
PT MEDICATED FOR PAIN WITH PRN MORPHINE. VSS. ALL NEEDS MET AT THIS TIME. AWAITING ROOM ON FLOOR. CALL LIGHT WITHIN REACH
[2018-10-02] MEDS ORDERED: MAGNESIUM SULFATE PMX 2GM/50ML 50 ML IV SCH (16:00)
--- NOTE | 2018-10-02 17:39 | NUR ---
Pt ambulated with steady gait to restroom, medicated for 10/10 pain.
--- NOTE | 2018-10-02 17:43 | NUR ---
Break RN: ordered from pharmacy
[2018-10-02] MEDS ORDERED: MAGNESIUM SULFATE PMX 2GM/50ML 50 ML ONE (17:51)
[2018-10-02] MEDS ORDERED: MAGNESIUM SULFATE IV ONE ×2 (18:00→20:00)
[2018-10-02] MEDS ORDERED: SODIUM CHLORIDE 0.9% IV ONE ×2 (18:00→20:00)
[2018-10-02] MEDS ORDERED: POTASSIUM PHOSPHATE IV ONE ×2 (18:00→20:00)
--- NOTE | 2018-10-02 20:12 | NUR ---
REPORT GIVEN TO JASMYNE BELLO, PT READY FOR TRANSPORT.
[2018-10-03 00:36] VITALS: BP 166/96
[2018-10-03] MEDS: morphine SULFATE 10 MG/ML, 1ML IVPush PRN ×3 (00:54→07:35)
[2018-10-03] MEDS: LACTATED RINGERS 1,000 ML IV SCH ×2 (04:14→08:00)
[2018-10-03 08:24] VITALS: BP 178/98
[2018-10-03 08:24] LABS: BASOPHILS # (AUTO) 0.01 x10^3/uL (0-0.1); BASOPHILS % (AUTO) 0 % (0-1); EOSINOPHILS # (AUTO) 0.35 x10^3/uL (0-0.4); EOSINOPHILS % (AUTO) 4 % (1-7); LYMPHOCYTES # (AUTO) 1.01 x10^3/uL (1-3.4); LYMPHOCYTES % (AUTO) 12 % (22-44); MD NO; MEAN CORPUSCULAR HEMOGLOBIN 32.8 pg (27.5-34.5); MEAN CORPUSCULAR HGB CONC 34.5 g/dL (33.2-36.2); MEAN CORPUSCULAR VOLUME 95.1 fL (81-97); MEAN PLATELET VOLUME 8.6 fL (7.4-10.4); MONOCYTES # (AUTO) 0.66 x10^3/uL (0.2-0.8); MONOCYTES % (AUTO) 8 % (2-9); NEUTROPHILS # (AUTO) 6.74 x10^3/uL (1.8-6.8); NEUTROPHILS % (AUTO) 77 % (42-75); PLATELET COUNT 184 x10^3/uL (130-400); RED BLOOD COUNT 4.74 x10^6/uL (4.38-5.82); RED CELL DISTRIBUTION WIDTH 15.3 % (9.4-14.8)
[2018-10-03 08:37] LABS: ALANINE AMINOTRANSFERASE 21 U/L (12-78); ALBUMIN 3.5 g/dL (3.4-5.0); ANION GAP 8 mmol/L (5-15); CHLORIDE 101 mmol/L (98-107); CREATININE 0.81 mg/dL (0.7-1.3)
[2018-10-03 08:39] LABS: ALKALINE PHOSPHATASE 86 U/L (45-117); BILIRUBIN,TOTAL 2.5 mg/dL (0.2-1.0); TOTAL PROTEIN 6.8 g/dL (6.4-8.2)
[2018-10-03] MEDS: ENOXAPARIN 40 MG/0.4 ML SQ SCH (09:25)
[2018-10-03] MEDS: FAMOTIDINE 20 MG/2 ML IVPush SCH (09:27)
[2018-10-03] MEDS ORDERED: POTA20TA6 PO (10:20)
[2018-10-03] MEDS ORDERED: BENA20TA54 PO (10:20)
[2018-10-03] MEDS ORDERED: ATEN25TA PO (10:20)
[2018-10-03] MEDS ORDERED: ATOR40TA78 PO (10:24)
[2018-10-03] MEDS ORDERED: POTASSIUM CHLORIDE 20 MEQ TAB.ER.PRT PO ONE (10:30)
[2018-10-03] MEDS: LEVETIRACETAM 1,000 MG in SODIUM CHLORIDE 0.9% 100 ML IV SCH (11:00)
== END 2018-10-03 12:00 | disposition home or self-care (01) | DRG 391 ==
LOC: ED 05:22 → EDIP 07:27 → 3NE 20:15 → DCLOUNGE 10-03 11:50
PROVIDERS: ADMIT Internal Medicine; ATTEND Internal Medicine
DX: K21.9 Gastro-esophageal reflux disease without esophagitis (principal); K85.00 Idiopathic acute pancreatitis without necrosis or infection; E11.9 Type 2 diabetes mellitus without complications; E78.5 Hyperlipidemia, unspecified; E83.39 Other disorders of phosphorus metabolism; E83.42 Hypomagnesemia; E87.6 Hypokalemia; F10.21 Alcohol dependence, in remission; G40.909 Epilepsy, unspecified, not intractable, without status epilepticus; I10 Essential (primary) hypertension; I25.10 Atherosclerotic heart disease of native coronary artery without angina pectoris; Z82.49 Family history of ischemic heart disease and other diseases of the circulatory system; Z88.8 Allergy status to other drugs, medicaments and biological substances; Z86.73 Personal history of transient ischemic attack (TIA), and cerebral infarction without residual deficits; Z87.891 Personal history of nicotine dependence; Z95.1 Presence of aortocoronary bypass graft; E80.6 Other disorders of bilirubin metabolism; R00.0 Tachycardia, unspecified; K76.0 Fatty (change of) liver, not elsewhere classified
CPT/HCPCS: 36415; 74177; 76700; 80053; 80061; 80307; 81003; 83690; 83735; 84100; 85025; 90656; 99285; G0378; J1650; J1953; J2405; J3475; J3480; Q9967; J0360; J2270; J3490; J7030; J7040; J7120

== ENCOUNTER 2018-11-05 05:17 | Emergency (ER) | payer MEDICARE ==
[~2018-11-05] VITALS: Ht 175.3 cm; Wt 97.5 kg
[~2018-11-05 05:17] MED LIST changes: +ATOR40TA78 PO; +POTA20TA6 PO
--- NOTE | 2018-11-05 05:48 | NUR ---
FIRST CONTACT WITH PT. PT PRESENTS TO ED C/O DIFFUSE ABD PAIN WITH NAUSEA. STATES RECENT HOSPITAL STAY FOR PANCREATITIS. SIMILAR S/S TONIGHT PER PT REPORT. PT'S AOX4. RESPS EVEN AND UNLABORED. BP/SPO2 MONITORS IN PLACE. CALL LIGHT WITHIN REACH. EDMD AT BEDSIDE TO ASSESS AT THIS TIME.
[2018-11-05] MEDS ORDERED: SODIUM CHLORIDE FLUSH 10ML SYR IVF ONE (06:00)
[2018-11-05] MEDS ORDERED: ONDANSETRON 2MG/ML, 2ML IVPush ONE (06:00)
[2018-11-05] MEDS ORDERED: ONDANSETRON 2MG/ML, 2ML ONE (06:09)
[2018-11-05] MEDS ORDERED: MORPHINE SULFATE 4 MG/ML, 1ML ONE ×2 (06:09→07:44)
[2018-11-05] MEDS: MORPHINE SULFATE 4 MG/ML, 1ML IVPush PRN ×2 (06:14→07:54)
--- NOTE | 2018-11-05 06:19 | NUR ---
pt medicated per emar for pain. pt tolerated well.
[2018-11-05 06:30] LABS: BASOPHILS # (AUTO) 0.07 x10^3/uL (0-0.1); BASOPHILS % (AUTO) 1 % (0-1); EOSINOPHILS % (AUTO) 3 % (1-7); LYMPHOCYTES % (AUTO) 21 % (22-44); MD NO; MEAN CORPUSCULAR HEMOGLOBIN 33.8 pg (27.5-34.5); MEAN CORPUSCULAR HGB CONC 35.2 g/dL (33.2-36.2); MEAN CORPUSCULAR VOLUME 95.9 fL (81-97); MEAN PLATELET VOLUME 8.3 fL (7.4-10.4); MONOCYTES # (AUTO) 0.57 x10^3/uL (0.2-0.8); MONOCYTES % (AUTO) 9 % (2-9); NEUTROPHILS # (AUTO) 4.02 x10^3/uL (1.8-6.8); NEUTROPHILS % (AUTO) 65 % (42-75); PLATELET COUNT 220 x10^3/uL (130-400); RED BLOOD COUNT 4.91 x10^6/uL (4.38-5.82); RED CELL DISTRIBUTION WIDTH 15.5 % (9.4-14.8)
--- NOTE | 2018-11-05 06:42 | NUR ---
PT AMB TO BR AND BACK TO ROOM WITH STEADY GAIT.
[2018-11-05 06:44] LABS: ALANINE AMINOTRANSFERASE 24 U/L (12-78); ALBUMIN 3.7 g/dL (3.4-5.0); ANION GAP 8 mmol/L (5-15); CALCIUM 8.8 mg/dL (8.5-10.1); CHLORIDE 107 mmol/L (98-107); CREATININE 1.15 mg/dL (0.7-1.3)
--- NOTE | 2018-11-05 06:45 | NUR ---
RECEIVED REPORT FROM ARTI BELLO
[2018-11-05 06:46] LABS: ALKALINE PHOSPHATASE 78 U/L (45-117); BILIRUBIN,TOTAL 0.4 mg/dL (0.2-1.0); TOTAL PROTEIN 7.1 g/dL (6.4-8.2)
--- NOTE | 2018-11-05 06:46 | NUR ---
REPORT GIVEN TO DUSTIN BELLO.
[2018-11-05] MEDS ORDERED: OMNIPAQUE 350 MG/ML, 100ML BOTTLE ONE (07:22)
[2018-11-05 07:54] VITALS: BP 207/98
--- NOTE | 2018-11-05 07:54 | NUR ---
pt stated that his abd pain is 10//10. pt given morphine 4 mg iv.
== END 2018-11-05 08:41 | disposition home or self-care (01) ==
LOC: ED 06:15
DX: R10.84 Generalized abdominal pain (principal); E11.9 Type 2 diabetes mellitus without complications; G40.909 Epilepsy, unspecified, not intractable, without status epilepticus; I25.10 Atherosclerotic heart disease of native coronary artery without angina pectoris; I10 Essential (primary) hypertension; Z95.1 Presence of aortocoronary bypass graft; Z87.891 Personal history of nicotine dependence; Z86.73 Personal history of transient ischemic attack (TIA), and cerebral infarction without residual deficits; Z96.649 Presence of unspecified artificial hip joint
CPT/HCPCS: 36415; 74177; 80053; 83690; 85025; 93005; 96374; 96375; 96376; 99284; J2405; Q9967

== ENCOUNTER 2018-12-09 05:34 | Emergency (ER) | payer MEDICARE ==
[~2018-12-09] VITALS: Ht 175.3 cm; Wt 98.3 kg
--- NOTE | 2018-12-09 05:58 | NUR ---
PT SAYS FOOT SLIPPED AND HE HIT CHEST ON CORNER OF STAIRS. PT SAYS HAS PAIN WITH INSPIRATION. MONITORS APPLIED, SIDERAILS UP X2, CALL LIGHT WITHIN REACH. PT MEDICATED PER MAR
[2018-12-09 06:17] VITALS: BP 183/92
[2018-12-09] MEDS ORDERED: LEVE100020 PO (06:17)
--- NOTE | 2018-12-09 06:20 | NUR ---
PT C/O CNTINUED PAIN, WILL UPDATE PA
--- NOTE | 2018-12-09 06:33 | NUR ---
pa updated regarding pt's c/o continued pain, no new orders received at this time
== END 2018-12-09 06:45 | disposition home or self-care (01) ==
LOC: ED 06:11
DX: S20.219A Contusion of unspecified front wall of thorax, initial encounter (principal); E11.9 Type 2 diabetes mellitus without complications; E78.5 Hyperlipidemia, unspecified; I10 Essential (primary) hypertension; I25.10 Atherosclerotic heart disease of native coronary artery without angina pectoris; Z72.9 Problem related to lifestyle, unspecified; Z88.8 Allergy status to other drugs, medicaments and biological substances; Z88.5 Allergy status to narcotic agent; Z88.6 Allergy status to analgesic agent; Z87.891 Personal history of nicotine dependence; Z86.73 Personal history of transient ischemic attack (TIA), and cerebral infarction without residual deficits; Z79.899 Other long term (current) drug therapy; W19.XXXA Unspecified fall, initial encounter; Y93.89 Activity, other specified; Y92.098 Other place in other non-institutional residence as the place of occurrence of the external cause; Y99.8 Other external cause status
CPT/HCPCS: 71046; 93005; 99283

== ENCOUNTER 2019-07-05 07:03 | Emergency (ER) | payer MEDICARE ==
[~2019-07-05] VITALS: Ht 175.3 cm; Wt 97.8 kg
[~2019-07-05 07:03] MED LIST changes: +ASPI-515 PO; +LEVE100020 PO
[2019-07-05] MEDS ORDERED: SODIUM CHLORIDE FLUSH 10ML SYR IVF ONE (07:30)
[2019-07-05] MEDS ORDERED: FAMOTIDINE 20 MG/2 ML IV ONE (07:30)
[2019-07-05] MEDS ORDERED: ONDANSETRON 2MG/ML, 2ML IVPush ONE (07:30)
[2019-07-05 08:03] LABS: BASOPHILS # (AUTO) 0.03 x10^3/uL (0-0.1); BASOPHILS % (AUTO) 1 % (0-1); EOSINOPHILS # (AUTO) 0.18 x10^3/uL (0-0.4); EOSINOPHILS % (AUTO) 3 % (1-7); LYMPHOCYTES # (AUTO) 0.94 x10^3/uL (1-3.4); LYMPHOCYTES % (AUTO) 15 % (22-44); MD NO; MEAN CORPUSCULAR HEMOGLOBIN 36.9 pg (27.5-34.5); MEAN CORPUSCULAR HGB CONC 33.7 g/dL (33.2-36.2); MEAN CORPUSCULAR VOLUME 109.4 fL (81-97); MEAN PLATELET VOLUME 8.2 fL (7.4-10.4); MONOCYTES # (AUTO) 0.49 x10^3/uL (0.2-0.8); MONOCYTES % (AUTO) 8 % (2-9); NEUTROPHILS # (AUTO) 4.62 x10^3/uL (1.8-6.8); NEUTROPHILS % (AUTO) 74 % (42-75); PLATELET COUNT 218 x10^3/uL (130-400); RED BLOOD COUNT 4.08 x10^6/uL (4.38-5.82); RED CELL DISTRIBUTION WIDTH 17.6 % (9.4-14.8)
--- NOTE | 2019-07-05 08:08 | NUR ---
ATTEMPTED TO START IV, DIFFICULT STICK. BLOOD DRAWN BY LAB. PT OFF FLOOR TO ULTRASOUND
[2019-07-05 08:16] LABS: ALANINE AMINOTRANSFERASE 22 U/L (12-78); ALBUMIN 3.5 g/dL (3.4-5.0); ANION GAP 6 mmol/L (5-15); CALCIUM 8.4 mg/dL (8.5-10.1); CHLORIDE 108 mmol/L (98-107); CREATININE 0.88 mg/dL (0.7-1.3)
[2019-07-05 08:21] LABS: ALKALINE PHOSPHATASE 88 U/L (45-117); BILIRUBIN,TOTAL 1.2 mg/dL (0.2-1.0); TOTAL PROTEIN 6.9 g/dL (6.4-8.2); TROPONIN I < 0.015 ng/mL (0.000-0.045)
[2019-07-05 08:23] LABS: MICROSCOPIC NOT IND
[2019-07-05 08:26] LABS: CULTURE INDICATED? NO
[2019-07-05] MEDS ORDERED: FAMOTIDINE 20 MG/2 ML ONE (08:43)
[2019-07-05] MEDS ORDERED: MORPHINE SULFATE 4 MG/ML, 1ML ONE ×2 (08:43→09:47)
[2019-07-05] MEDS ORDERED: ONDANSETRON 2MG/ML, 2ML ONE (08:43)
[2019-07-05] MEDS: MORPHINE SULFATE 4 MG/ML, 1ML IVPush PRN ×2 (08:47→09:48)
--- NOTE | 2019-07-05 08:53 | NUR ---
TASK RN: IV ESTABLISHED, PT. MEDICATED PER MAR. CONTINUOUS PULSE OX, B/P, AND HEART MONTIORS PLACED. CALL LIGHT IN REACH. ALL SAFETY MEASURES OBSERVED. POC DISCUSSED. PT. DENIES OTHER NEEDS.
[2019-07-05] MEDS ORDERED: OMNIPAQUE 350 MG/ML, 100ML BOTTLE ONE (09:38)
--- NOTE | 2019-07-05 09:51 | NUR ---
STATES TEMPORARY RELIEF OF PAIN BUT THAT IT HAS RETURNED. MEDICATED PER MAR
[2019-07-05 10:45] VITALS: BP 172/84
== END 2019-07-05 10:47 | disposition home or self-care (01) ==
LOC: ED 08:02
DX: K29.00 Acute gastritis without bleeding (principal); G89.29 Other chronic pain; R10.13 Epigastric pain; I25.10 Atherosclerotic heart disease of native coronary artery without angina pectoris; E11.9 Type 2 diabetes mellitus without complications; I10 Essential (primary) hypertension
CPT/HCPCS: 36415; 74177; 76700; 80053; 81003; 82150; 83690; 84484; 85025; 93005; 96374; 96375; 96376; 99284; J2270; J2405; J3490; Q9967

== ENCOUNTER 2019-09-08 06:21 | Emergency (ER) | payer MEDICARE, MEDICAID ==
[~2019-09-08] VITALS: Ht 175.3 cm; Wt 99.0 kg
--- NOTE | 2019-09-08 06:40 | NUR ---
Pt presents to ed c/o mglf approx 1.5 hours ago and "i hit my scar right on a car, thats why it hurts so bad." States pain in center of chest. -head trauma -loc. States pain reproducable to palpation. No obvious swelling or bruising noted on chest. States painful upon deep inspiration. Hx of htn states controlled via medication. Bp grossly elevated in triage and in room. States takes meds @midnight and took medication last night. All monitoring applied. Call light within reach.
--- NOTE | 2019-09-08 06:57 | NUR ---
RECEIVED REPORT FROM ACE LYNN TO ASSUME CARE OF PT. PT. RESTING ON GURNY WITH T.V. ON. PT. DENIES NEEDS AT THIS TIME
--- NOTE | 2019-09-08 07:25 | NUR ---
PT. STATES "I AM STILL IN HORRIBLE PAIN, GET ME SOME MORPHINE. ONLY THE BLOOD PRESSURE MEDICATION WORKED, I AM STILL IN TERRIBLE PAIN. WHAT THE HELL IS WRONG WITH THAT ? IS HE ON THE RAG OR SOMETHING? WHY WON'T HE GIVE ME SOMETHING FOR THIS PAIN? GET HIM IN HERE AND LET HIM TALK TO ME!" DISCUSSED WITH PT. THAT THE PAIN PILL ADMINISTERED MAY HAVE NOT HAD TIME TO KICK IN YET. PT. TO X-RAY VIA [employer] AT THIS TIME. UPDATED ON PT. REQUEST FOR FURTHER PAIN MEDS. NO NEW ORDERS AT THIS TIME.
[2019-09-08 08:41] VITALS: BP 170/73
== END 2019-09-08 08:48 | disposition home or self-care (01) ==
LOC: ED 07:42
DX: R07.89 Other chest pain (principal); R06.02 Shortness of breath; R94.31 Abnormal electrocardiogram [ECG] [EKG]
CPT/HCPCS: 71046; 93005; 99283